=== PATIENT | female | born 1975 | race Two or more races ===

== ENCOUNTER 2024-01-05 15:31 | Inpatient (IN) | payer OTHER ==
[~2024-01-05] VITALS: Ht 154.9 cm; Wt 83.0 kg
[2024-01-05] MEDS ORDERED: JARDIANCE25 MG PO (16:01)
[2024-01-05] MEDS ORDERED: levoFLOXacin IN DEXTROSE 5 % 5 MG/ML PIGGYBAG IV STA (16:22)
[2024-01-05] MEDS ORDERED: METHYLPREDNISOLONE SOD SUCC 125 MG VIAL IM STA (16:23)
[2024-01-05] MEDS ORDERED: ALBUTEROL SULFATE 3 ML/2.5 MG AMPUL.NEB IH SCH (16:30)
[2024-01-05] MEDS ORDERED: LEVALBUTEROL HCL 1.25 MG/3 ML SOLUTION IH SCH ×2 (16:30→21:00)
[2024-01-05] MEDS ORDERED: CEFTRIAXONE SODIUM 2,000 MG VIAL IV STA (17:01)
[2024-01-05] MEDS ORDERED: AZITHROMYCIN 500 MG TABLET PO STA (17:01)
[2024-01-05 17:22] LABS: ABG PH 7.389 (7.35-7.45); ABG PO2 102.3 mmHg (80-100); BASE EXCESS -10.5 mmol/l; BICARBONATE 11.8 mmol/l (23-25); SaO2 97.6 %; Tco2 12.4 mmol/l
[2024-01-05 18:01] LABS: HEMATOCRIT 40.7 % (36.0-45.00); HEMOGLOBIN 13.6 g/dL (12.0-15.00); MEAN CELL VOLUME 89.4 fL (80.00-100.00); MEAN CORPUSCULAR HEMOGLOBIN 29.8 pg (27.00-32.0); MEAN CORPUSCULAR HGB CONC 33.3 g/dl (32.0-36.0); PLATELET COUNT 263 K/uL (150-450); RED BLOOD COUNT 4.56 M/uL (4.00-6.00); RED CELL DISTRIBUTION WIDTH 13.6 % (11.5-14.5)
[2024-01-05 18:21] LABS: CALCIUM 9.7 mg/dL (8.5-10.1); CREATININE SERUM 0.68 mg/dL (0.55-1.02); GFR 92.74; POTASSIUM 4.34 mEq/L (3.5-5.1)
[2024-01-05] MEDS ORDERED: 0.9 % SODIUM CHLORIDE 1,000 ML IV ONE (19:30)
[2024-01-05] MEDS ORDERED: ACETAMINOPHEN 500 MG GEL..CAP PO PRN (19:30)
[2024-01-05] MEDS ORDERED: 0.9 % SODIUM CHLORIDE 500 ML IV NR (19:30)
[2024-01-05] MEDS ORDERED: ONDANSETRON HCL 4 MG in 0.9 % SODIUM CHLORIDE 50 ML IV PRN (19:30)
[2024-01-05] MEDS ORDERED: 0.9 % SODIUM CHLORIDE 1,000 ML IV SCH (19:30)
[2024-01-05] MEDS ORDERED: DEXTROSE 50 % IN WATER 0.5 G/ML DISP.SYRIN IV PRN (19:45)
[2024-01-05] MEDS ORDERED: INSULIN LISPRO 1,000 UNIT/10 ML UNITS SUBCUTANEO PRN (19:45)
[2024-01-05] MEDS ORDERED: GUAIFENESIN/DEXTROMETHORPHAN 10ML BLIST.PACK PO SCH (20:00)
[2024-01-05 20:47] LABS: INR 1.11; PROTHROMBIN TIME 11.6 SECONDS (9.0-11.5)
[2024-01-05] MEDS ORDERED: IPRATROPIUM BROMIDE 0.5 MG/2.5 ML AMPUL.NEB IH SCH (21:00)
[2024-01-05 21:08] LABS: ABG pCO2 19.9 mmHg (35-45); allen test SATISFACTORY; o2 21 %; puncture site RADIAL LEFT
[2024-01-05 21:15] LABS: URINE APPEARANCE Clear; URINE BILIRRUBIN Negative (NEGATIVE); URINE BLOOD Trace; URINE COLOR Yellow; URINE LEUKOCYTE Negative; URINE NITRATE Negative; URINE UROBILINOGEN 0.2 E.U./dl
[2024-01-05 21:19] LABS: URINE BACTERIA 156.1 uL (0.0-1933); URINE EPITHELIAL CELLS 5.8 uL (0.0-38.8); URINE RBC 3.8 uL (0.0-20.8); URINE WBC 4.1 uL (0.0-23.2)
[2024-01-05 21:33] LABS: URINE GLUCOSE >=1000 MG/DL (NEGATIVE); URINE PROTEIN 100 (NEGATIVE)
[2024-01-06] MEDS ORDERED: ENOXAPARIN SODIUM 40 MG/0.4 ML SYRINGE SUBCUTANEO SCH (09:00)
[2024-01-06] MEDS ORDERED: levoFLOXacin IN DEXTROSE 5 % 150 ML IV SCH (09:00)
[2024-01-06] MEDS ORDERED: FAMOTIDINE/PF 20 MG in 0.9 % SODIUM CHLORIDE 8 ML IV PUSH SCH (09:00)
[2024-01-06] MEDS ORDERED: GUAIFENESIN/DEXTROMETHORPHAN 10ML BLIST.PACK PO SCH (09:13)
[2024-01-06] MEDS ORDERED: LEVALBUTEROL HCL 1.25 MG/3 ML SOLUTION IH SCH (12:00)
[2024-01-06] MEDS ORDERED: DEXTROSE 50 % IN WATER 0.5 G/ML VIAL IV PRN (16:00)
[2024-01-06] MEDS ORDERED: LACTOBACILLUS ACIDOPHILUS 1 CAP CAP PO SCH (17:00)
[2024-01-08 06:41] LABS: MEAN CELL VOLUME 86.4 fL (80.00-100.00); MEAN CORPUSCULAR HEMOGLOBIN 29.6 pg (27.00-32.0); MEAN CORPUSCULAR HGB CONC 34.3 g/dl (32.0-36.0); PLATELET COUNT 231 K/uL (150-450); RED BLOOD COUNT 4.04 M/uL (4.00-6.00); RED CELL DISTRIBUTION WIDTH 13.6 % (11.5-14.5)
[2024-01-08 07:30] LABS: ALBUMIN 2.6 gm/dL (3.4-5.0); BILIRUBIN TOTAL 0.49 mg/dL (0.3-1.2); CALCIUM 8.2 mg/dL (8.5-10.1); CREATININE SERUM 0.34 mg/dL (0.55-1.02); GFR 206.38; TOTAL PROTEIN 6.6 gm/dL (6.4-8.2)
[2024-01-08 07:32] LABS: ERYTHROCYTE SEDIMENTATION RATE 122 mm/hr
[2024-01-08 08:15] LABS: C-REACTIVE PROTEIN 8.7 MG/DL (0.00-0.29)
[2024-01-08] MEDS ORDERED: POTASSIUM CHLORIDE IN WATER 100 ML IV NR (13:00)
[2024-01-08] MEDS ORDERED: FAMOtidine 20 MG TABLET PO SCH (21:00)
[2024-01-09 22:23] LABS: ABG PH 7.492 (7.35-7.45); ABG PO2 127.4 mmHg (80-100); ABG pCO2 34.7 mmHg (35-45); BASE EXCESS 3.1 mmol/l; SaO2 99.2 %; Tco2 27.1 mmol/l
[2024-01-09 22:30] LABS: allen test SATISFACTORY; o2 21 %; puncture site RADIAL RIGHT
[2024-01-10 09:50] LABS: HEMATOCRIT 35.9 % (36.0-45.00); HEMOGLOBIN 12.5 g/dL (12.0-15.00); MEAN CELL VOLUME 87.1 fL (80.00-100.00); MEAN CORPUSCULAR HEMOGLOBIN 30.3 pg (27.00-32.0); MEAN CORPUSCULAR HGB CONC 34.8 g/dl (32.0-36.0); PLATELET COUNT 237 K/uL (150-450); RED BLOOD COUNT 4.13 M/uL (4.00-6.00); RED CELL DISTRIBUTION WIDTH 13.3 % (11.5-14.5)
[2024-01-10 10:08] LABS: ERYTHROCYTE SEDIMENTATION RATE 90 mm/hr
[2024-01-10] MEDS ORDERED: LEVOFLOXACIN750 MG PO (17:05)
[2024-01-10] MEDS ORDERED: INTESTINEX680 M2 PO (17:05)
== END 2024-01-10 18:03 | disposition home or self-care (01) | DRG 871 ==
LOC: ER 15:32 → SEC-K 19:45 → MEDJ 01-06 23:44 → SEC-K 01-07 00:43 → SURH 01-08 04:18
PROVIDERS: General Practice; Internal Medicine; ADMIT Internal Medicine; ATTEND Internal Medicine
PROC: BW24YZZ Computerized Tomography (CT Scan) of Chest and Abdomen using Other Contrast (ICD-10-PCS; principal; 2024-01-05)
PROC: 4A12X4Z Monitoring of Cardiac Electrical Activity, External Approach (ICD-10-PCS; 2024-01-08)
DX: A41.9 Sepsis, unspecified organism (principal); J15.7 Pneumonia due to Mycoplasma pneumoniae; E86.0 Dehydration; E87.6 Hypokalemia; E11.9 Type 2 diabetes mellitus without complications; Z79.4 Long term (current) use of insulin